=== PATIENT | male | born 1940 | race Hispanic/Latino ===

== ENCOUNTER 2019-01-08 05:30 | Day surgery (SDC) | payer OTHER ==
[~2019-01-08] VITALS: Ht 167.6 cm; Wt 95.3 kg
[2019-01-08] MEDS ORDERED: SODIUM CHLORIDE 0.9% 1000ML 1,000 ML IV ONE (05:50)
[2019-01-08] MEDS ORDERED: ALLO100T PO (06:12)
[2019-01-08] MEDS ORDERED: CHOL50004 PO (06:12)
[2019-01-08] MEDS ORDERED: FAMO20TA8 PO (06:12)
[2019-01-08] MEDS ORDERED: tylenol PO (06:12)
[2019-01-08] MEDS ORDERED: SENN8.6T90 PO (06:12)
[2019-01-08] MEDS ORDERED: iron (06:12)
[2019-01-08] MEDS ORDERED: LOSA25TA41 PO (06:12)
[2019-01-08] MEDS ORDERED: ATOR40TA71 PO (06:12)
[2019-01-08] MEDS ORDERED: APIX5TAB PO (06:12)
[2019-01-08] MEDS ORDERED: ASPI-555 PO (06:12)
[2019-01-08] MEDS ORDERED: CETI10TA57 PO (06:12)
[2019-01-08] MEDS ORDERED: TAMS-1 PO (06:12)
[2019-01-08] MEDS ORDERED: LEVO50TA11 PO (06:12)
[2019-01-08 06:13] VITALS: BP 143/75
[2019-01-08] MEDS ORDERED: PROPOFOL 1000 MG/100 ML 100 ML IV ONE (06:30)
[2019-01-08 06:58] VITALS: BP 109/54
[2019-01-08 07:03] VITALS: BP 109/53
[2019-01-08 07:09] VITALS: BP 107/22
[2019-01-08 07:13] VITALS: BP 105/33
[2019-01-08 07:20] VITALS: BP 144/78
== END 2019-01-08 07:35 | disposition home or self-care (01) ==
LOC: ENDO 05:30 → DAH 05:30 → ENDO 07:35
PROVIDERS: ATTEND Internal Medicine
DX: D12.2 Benign neoplasm of ascending colon (principal); K64.0 First degree hemorrhoids; K57.30 Diverticulosis of large intestine without perforation or abscess without bleeding; K21.9 Gastro-esophageal reflux disease without esophagitis; D50.9 Iron deficiency anemia, unspecified; I10 Essential (primary) hypertension; M19.90 Unspecified osteoarthritis, unspecified site; M81.0 Age-related osteoporosis without current pathological fracture; E78.5 Hyperlipidemia, unspecified; E03.9 Hypothyroidism, unspecified; M10.9 Gout, unspecified; K59.01 Slow transit constipation; I67.89 Other cerebrovascular disease; I48.91 Unspecified atrial fibrillation; Z98.890 Other specified postprocedural states; Z79.01 Long term (current) use of anticoagulants; Z79.82 Long term (current) use of aspirin; Z79.899 Other long term (current) drug therapy; Z68.37 Body mass index [BMI] 37.0-37.9, adult
CPT/HCPCS: 45385; 93005; A4606; J2704; J7030

== ENCOUNTER → 2020-10-22 | Outpatient (CLI) | payer OTHER ==
[~2020-10-22] MED LIST: ALLO100T PO; ASPI-556 PO; ATOR40TA71 PO; CETI10TA57 PO; CHOL50004 PO; FAMO20TA8 PO; LEVO50TA11 PO; LOSA25TA41 PO; SENN8.6T90 PO; TAMS-1 PO; iron; tylenol PO
== END | disposition home or self-care (01) ==
LOC: RAH 11:47
PROVIDERS: ATTEND Internal Medicine
DX: M19.012 Primary osteoarthritis, left shoulder (principal)
CPT/HCPCS: 73030

== ENCOUNTER → 2022-09-19 | Outpatient (CLI) | payer OTHER | END | disposition home or self-care (01) | LOC: RAH 11:39 | PROVIDERS: ATTEND Internal Medicine | DX: M79.642 Pain in left hand (principal); W54.0XXA Bitten by dog, initial encounter; Y93.89 Activity, other specified; Y92.89 Other specified places as the place of occurrence of the external cause; Y99.8 Other external cause status | CPT/HCPCS: 73130 ==